=== PATIENT | female | born 1975 | race Hispanic/Latino ===

== ENCOUNTER 2016-03-09 19:36 | Emergency (ER) | payer OTHER ==
[~2016-03-09 19:36] MED LIST: IRON65TA PO; PRIL40CA PO
[2016-03-09] MEDS ORDERED: IBUPROFEN 800 MG TAB As Ordered ONE (20:52)
[2016-03-09] MEDS ORDERED: CEPHALEXIN 250 MG CAP As Ordered ONE (20:52)
--- NOTE | 2016-03-09 21:05 | EDDOCDS ---
Nurse's Notes [facility] Name: Luz Marina Valencia Age: 40 yrs Sex: Female : 1975 Arrival Date: 03/09/2016 Time: 19:36 Bed TR8 Private MD: Unknown Pcp Diagnosis: Cutaneous abscess of hand-right ring finger paronychia Presentation: 03/09 19:42 Presenting complaint: Patient states: Infected ring finger on right hand, started mcp feeling dizzy. Adult Sepsis Screening: The patient does not have new or worsening altered mentation. Patient's respiratory rate is less than 22. Systolic blood pressure is greater than 100. Patient has a qSOFA score of 0- Negative Sepsis Screen. Suicide/Homicide risk assessment- the patient denies having any suicidal and/or homicidal ideations and does not present with any other emotional, behavioral or mental health complaints. 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 Transition of care: patient was not received from another setting of care. 19:42 Acuity: LISSETT Level 4 [facility] 19:42 Method Of Arrival: Ambulance [facility] Triage Assessment: 19:45 General: Appears slender, Behavior is cooperative. Pain: Location: right hand Pain mcp currently is 9 out of 10 on a pain scale. HIV screening NA for this visit Offered previously. Neurological: Reports dizziness. Respiratory: Airway is patent Respiratory effort is even, unlabored. Derm: Skin is pink, warm & dry. Musculoskeletal: Circulation, motion, and sensation intact Swelling present in dorsal aspect of distal phalanx of right ring finger. 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 Prilosec 40 mg Oral cpDR 1 cap once daily - PMHx: GERD; - PSHx: ; - Social history: Smoking status: Patient states was never smoker of tobacco. Preferred Language: Libyan. - Family history: Not pertinent. - : The pt / caregiver states he / she is not on anticoagulants. Home medication list is obtained from the patient, family members. - Exposure Risk Screening:: None identified. Screenin:25 Screening information is obtained from the patient. Fall risk: No risks identified. cz Assistance ADL's: requires no assistance with activities of daily living. Abuse/DV Screen: The patient / caregiver reports he/she is: not in a situation that causes fear, pain or injury. Nutritional screening: No deficits noted. home support is adequate. 21:01 Advance Directives: There is no active DNR order. [facility] Assessment: 20:25 General: alert female with infection of nailbed of ring finger right hand red swollen cz to first joint of digit. 21:01 General: no changes from previous assessment, bandaid in tact to right finger. reviewed [facility] discharge instructions, encouraged and answered questions, denies further needs. Vital Signs: 19:38 BP 127 / 68; Pulse 67; Resp 18; Temp 98.0(O); Pulse Ox 99% ; Weight 79.38 kg (R); elp Height 4 ft. 11 in. (149.86 cm) (R); Pain 9/10; 21:01 BP 120 / 80; Pulse 70; Resp 16; Temp 98; Pulse Ox 99% ; Pain 8/10; cjh 19:38 Body Mass Index 35.35 (79.38 kg, 149.86 cm) elp Vitals: 19:38 Log In Time N/A - ambulance arrival. elp ED Course: 19:38 Patient visited by Manuela Fam PCA. elp 19:38 Unknown Pcp is Private Physician. elp 19:38 Patient moved to Waiting elp 19:39 Patient visited by Manuela Fam PCA. elp 19:39 Patient moved to Pre RCE elp 19:43 Triage Initiated mcp 19:45 Patient visited by Kerry Mosquera RN. mcp 20:23 Patient moved to Triage 3 cz 20:25 The patient / caregiver is instructed regarding the plan of care and ED course. cz 20:36 Samuel Davis PA-C is PHCP. ar2 20:36 Ken Ragland DO is Attending Physician. ar2 20:36 Patient visited by Samuel Davis PA-C. ar2 21:01 Patient moved to TR8 5 21:01 No IV's were initiated during this patient's visit. No procedures done that require [facility] assistance. Administered Medications: 20:49 CANCELLED (Other Intervention Used): Cephalexin Suspension 1000 mg PO once ar2 20:58 Drug: Ibuprofen 800 mg Route: PO; [facility] 20:58 Drug: Cephalexin 1000 mg [cephalexin 250 mg capsule (4 caps)] Route: PO; [facility] Order Results: There are currently no results for this order. Outcome: 20:48 Discharge ordered by Provider. ar2 21:01 Discharge Assessment: Patient awake, alert and oriented x 3. No cognitive and/or [facility] functional deficits noted. Patient verbalized understanding of disposition instructions. patient administered narcotics - no. The following High Risk Discharge criteria are identified: None. Discharged to home ambulatory. Condition: good Condition: stable Condition: improved. Discharge instructions given to patient, Instructed on discharge instructions, follow up and referral plans. medication usage, wound care, Demonstrated understanding of instructions, medications, Pt was receptive of discharge instructions/ teaching. Prescriptions given X 1. No special radiology studies were completed. Property :Personal belongings accompany Pt. 21:04 Patient left the ED. [facility] Signatures: Kerry Mosquera RN RN mcp Zecher, Calvin, Shelley Quinones RN, INFECTION PREVENTION COORDINATOR INFECTION PREVENTION COORDINATOR jb5 Samuel Davis, PARamaC PADarienl ar2 Isamar Rod RN RN [facility] Manuela Fam, INFECTION PREVENTION COORDINATOR INFECTION PREVENTION COORDINATOR elp MTDD
--- NOTE | 2016-03-09 21:05 | EDDOCDS ---
Physician Documentation [facility] Name: Luz Marina Valencia Age: 40 yrs Sex: Female : 1975 Arrival Date: 03/09/2016 Time: 19:36 Bed TR8 Private MD: Unknown Pcp Disposition: 03/09/16 20:48 Discharged to Home/Self Care. Impression: Cutaneous abscess of hand - right ring finger paronychia. - Condition is Stable. - Discharge Instructions: Paronychia. - Prescriptions for Keflex 500 mg Oral Capsule - take 1 capsule by ORAL route every 6 hours for 7 days; 28 capsule. - Medication Reconciliation, Local Pharmacy Hours form. - Follow up: Private Physician; When: 4 - 5 days; Reason: Recheck today's complaints. Follow up: Emergency Department; When: As needed; Reason: Worsening of conditions. - Problem is new. - Symptoms have improved. - Notes: soak in warm epsom salt baths 3-4 times per day Historical: - Allergies: no known allergies; - Home Meds: 1. Prilosec 40 mg Oral cpDR 1 cap once daily - PMHx: GERD; - PSHx: ; - Social history: Smoking status: Patient states was never smoker of tobacco. Preferred Language: Welsh. - Family history: Not pertinent. - : The pt / caregiver states he / she is not on anticoagulants. Home medication list is obtained from the patient, family members. - Exposure Risk Screening:: None identified. 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 11 in. (149.86 cm) (R); Pain 9/10; 21:01 BP 120 / 80; Pulse 70; Resp 16; Temp 98; Pulse Ox 99% ; Pain 8/10; cjh 19:38 Body Mass Index 35.35 (79.38 kg, 149.86 cm) elp MDM: 20:47 Dressing ordered. ar2 20:47 Ibuprofen 800 mg PO once ordered. ar2 20:49 Cephalexin 1000 mg PO once ordered. ar2 Administered Medications: 20:49 CANCELLED (Other Intervention Used): Cephalexin Suspension 1000 mg PO once ar2 20:58 Drug: Ibuprofen 800 mg Route: PO; [facility] 20:58 Drug: Cephalexin 1000 mg [cephalexin 250 mg capsule (4 caps)] Route: PO; [facility] Signatures: Kerry Mosquera RN Artemio Lagos mcp, RN RN cz Robertshaw, Aaron, PA-C PA-C ar2 Isamar Rod RN RN [facility] The chart was reviewed and I authenticate all verbal orders and agree with the evaluation and treatment provided.Corrections: (The following items were deleted from the chart) 20:49 20:47 Cephalexin Suspension 1000 mg PO once ordered. ar2 ar2 MTDD
--- NOTE | 2016-03-13 09:55 | EDDOCDS ---
Physician Documentation [facility] Name: Luz Marina Valencia Age: 40 yrs Sex: Female : 1975 Arrival Date: 03/09/2016 Time: 19:36 Bed TR8 Private MD: Unknown Pcp Disposition: 03/09/16 20:48 Discharged to Home/Self Care. Impression: Cutaneous abscess of hand - right ring finger paronychia. - Condition is Stable. - Discharge Instructions: Paronychia. - Prescriptions for Keflex 500 mg Oral Capsule - take 1 capsule by ORAL route every 6 hours for 7 days; 28 capsule. - Medication Reconciliation, Local Pharmacy Hours form. - Follow up: Private Physician; When: 4 - 5 days; Reason: Recheck today's complaints. Follow up: Emergency Department; When: As needed; Reason: Worsening of conditions. - Problem is new. - Symptoms have improved. - Notes: soak in warm epsom salt baths 3-4 times per day Historical: - Allergies: no known allergies; - Home Meds: 1. Prilosec 40 mg Oral cpDR 1 cap once daily - PMHx: GERD; - PSHx: ; - Social history: Smoking status: Patient states was never smoker of tobacco. Preferred Language: Jordanian. - Family history: Not pertinent. - : The pt / caregiver states he / she is not on anticoagulants. Home medication list is obtained from the patient, family members. - Exposure Risk Screening:: None identified. 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 11 in. (149.86 cm) (R); Pain 9/10; 21:01 BP 120 / 80; Pulse 70; Resp 16; Temp 98; Pulse Ox 99% ; Pain 8/10; cjh 19:38 Body Mass Index 35.35 (79.38 kg, 149.86 cm) elp MDM: 20:47 Dressing ordered. ar2 20:47 Ibuprofen 800 mg PO once ordered. ar2 20:49 Cephalexin 1000 mg PO once ordered. ar2 21:06 [facility] Payment Agreement was scanned into [employer] and attached to record. jp5 : Financial registration complete. jp5 03/10 08:29 T-Sheet-- Draft Copy was scanned into [employer] and attached to record. [facility] Administered Medications: 03/09 20:49 CANCELLED (Other Intervention Used): Cephalexin Suspension 1000 mg PO once ar2 20:58 Drug: Ibuprofen 800 mg Route: PO; [facility] 20:58 Drug: Cephalexin 1000 mg [cephalexin 250 mg capsule (4 caps)] Route: PO; [facility] Signatures: Kerry Mosquera RN RN [facility] Artemio Caballero RN RN Samuel Forrester PA-C PA-C ar2 Isamar Rod RN RN [facility] Lior Reinoso [facility] Mesha Elliott [facility] The chart was reviewed and I authenticate all verbal orders and agree with the evaluation and treatment provided.Corrections: (The following items were deleted from the chart) 20:49 20:47 Cephalexin Suspension 1000 mg PO once ordered. ar2 ar2 Attachments: 21:06 [facility] Payment Agreement jp5 03/10 08:29 T-Sheet-- Draft Copy [facility] Chart Complete MTDD
--- NOTE | 2016-03-13 09:55 | EDDOCDS ---
Physician Documentation [facility] Name: Luz Marina Valencia Age: 40 yrs Sex: Female : 1975 Arrival Date: 03/09/2016 Time: 19:36 Bed TR8 Private MD: Unknown Pcp Disposition: 03/09/16 20:48 Discharged to Home/Self Care. Impression: Cutaneous abscess of hand - right ring finger paronychia. - Condition is Stable. - Discharge Instructions: Paronychia. - Prescriptions for Keflex 500 mg Oral Capsule - take 1 capsule by ORAL route every 6 hours for 7 days; 28 capsule. - Medication Reconciliation, Local Pharmacy Hours form. - Follow up: Private Physician; When: 4 - 5 days; Reason: Recheck today's complaints. Follow up: Emergency Department; When: As needed; Reason: Worsening of conditions. - Problem is new. - Symptoms have improved. - Notes: soak in warm epsom salt baths 3-4 times per day Historical: - Allergies: no known allergies; - Home Meds: 1. Prilosec 40 mg Oral cpDR 1 cap once daily - PMHx: GERD; - PSHx: ; - Social history: Smoking status: Patient states was never smoker of tobacco. Preferred Language: Marshallese. - Family history: Not pertinent. - : The pt / caregiver states he / she is not on anticoagulants. Home medication list is obtained from the patient, family members. - Exposure Risk Screening:: None identified. 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 11 in. (149.86 cm) (R); Pain 9/10; 21:01 BP 120 / 80; Pulse 70; Resp 16; Temp 98; Pulse Ox 99% ; Pain 8/10; cjh 19:38 Body Mass Index 35.35 (79.38 kg, 149.86 cm) elp MDM: 20:47 Dressing ordered. ar2 20:47 Ibuprofen 800 mg PO once ordered. ar2 20:49 Cephalexin 1000 mg PO once ordered. ar2 21:06 [facility] Payment Agreement was scanned into [employer] and attached to record. jp5 : Financial registration complete. jp5 03/10 08:29 T-Sheet-- Draft Copy was scanned into [employer] and attached to record. [facility] Administered Medications: 03/09 20:49 CANCELLED (Other Intervention Used): Cephalexin Suspension 1000 mg PO once ar2 20:58 Drug: Ibuprofen 800 mg [facility]: [facility] 20:58 Drug: Cephalexin 1000 mg [cephalexin 250 mg capsule (4 caps)] Route: PO; [facility] Signatures: Kerry Mosquera RN RN [facility] Artemio Caballero RN RN Samuel Forrester PA-C PA-C ar2 Isamar Rod RN RN [facility] Lior Reinoso [facility] Mesha Elliott [facility] The chart was reviewed and I authenticate all verbal orders and agree with the evaluation and treatment provided.Corrections: (The following items were deleted from the chart) 20:49 20:47 Cephalexin Suspension 1000 mg PO once ordered. ar2 ar2 Attachments: 21:06 [facility] Payment Agreement jp5 03/10 08:29 T-Sheet-- Draft Copy [facility] Chart Complete MTDD
--- NOTE | 2016-03-13 09:55 | EDDOCDS ---
Nurse's Notes [facility] Name: Luz Marina Valencia Age: 40 yrs Sex: Female : 1975 Arrival Date: 03/09/2016 Time: 19:36 Bed TR8 Private MD: Unknown Pcp Diagnosis: Cutaneous abscess of hand-right ring finger paronychia Presentation: 03/09 19:42 Presenting complaint: Patient states: Infected ring finger on right hand, started mcp feeling dizzy. Adult Sepsis Screening: The patient does not have new or worsening altered mentation. Patient's respiratory rate is less than 22. Systolic blood pressure is greater than 100. Patient has a qSOFA score of 0- Negative Sepsis Screen. Suicide/Homicide risk assessment- the patient denies having any suicidal and/or homicidal ideations and does not present with any other emotional, behavioral or mental health complaints. 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 Transition of care: patient was not received from another setting of care. 19:42 Acuity: LISSETT Level 4 [facility] 19:42 Method Of Arrival: Ambulance [facility] Triage Assessment: 19:45 General: Appears slender, Behavior is cooperative. Pain: Location: right hand Pain mcp currently is 9 out of 10 on a pain scale. HIV screening NA for this visit Offered previously. Neurological: Reports dizziness. Respiratory: Airway is patent Respiratory effort is even, unlabored. Derm: Skin is pink, warm & dry. Musculoskeletal: Circulation, motion, and sensation intact Swelling present in dorsal aspect of distal phalanx of right ring finger. 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 Prilosec 40 mg Oral cpDR 1 cap once daily - PMHx: GERD; - PSHx: ; - Social history: Smoking status: Patient states was never smoker of tobacco. Preferred Language: Nigerien. - Family history: Not pertinent. - : The pt / caregiver states he / she is not on anticoagulants. Home medication list is obtained from the patient, family members. - Exposure Risk Screening:: None identified. Screenin:25 Screening information is obtained from the patient. Fall risk: No risks identified. cz Assistance ADL's: requires no assistance with activities of daily living. Abuse/DV Screen: The patient / caregiver reports he/she is: not in a situation that causes fear, pain or injury. Nutritional screening: No deficits noted. home support is adequate. 21:01 Advance Directives: There is no active DNR order. [facility] Assessment: 20:25 General: alert female with infection of nailbed of ring finger right hand red swollen cz to first joint of digit. 21:01 General: no changes from previous assessment, bandaid in tact to right finger. reviewed [facility] discharge instructions, encouraged and answered questions, denies further needs. Vital Signs: 19:38 BP 127 / 68; Pulse 67; Resp 18; Temp 98.0(O); Pulse Ox 99% ; Weight 79.38 kg (R); elp Height 4 ft. 11 in. (149.86 cm) (R); Pain 9/10; 21:01 BP 120 / 80; Pulse 70; Resp 16; Temp 98; Pulse Ox 99% ; Pain 8/10; h 19:38 Body Mass Index 35.35 (79.38 kg, 149.86 cm) elp Vitals: 19:38 Log In Time N/A - ambulance arrival. elp ED Course: 19:38 Patient visited by Manuela Fam PCA. elp 19:38 Unknown Pcp is Private Physician. elp 19:38 Patient moved to Waiting elp 19:39 Patient visited by Manuela Fam PCA. elp 19:39 Patient moved to Pre RCE elp 19:43 Triage Initiated mcp 19:45 Patient visited by Kerry Mosquera RN. mcp 20:23 Patient moved to Triage 3 cz 20:25 The patient / caregiver is instructed regarding the plan of care and ED course. cz 20:36 Samuel Davis PA-C is PHCP. ar2 20:36 Ken Ragland DO is Attending Physician. ar2 20:36 Patient visited by Samuel Davis PA-C. ar2 21:01 Patient moved to TR8 jb5 21:01 No IV's were initiated during this patient's visit. No procedures done that require [facility] assistance. 21:06 [facility] Payment Agreement was scanned into [email or web address] and attached to record. jp5 03/10 08:29 T-Sheet-- Draft Copy was scanned into [email or web address] and attached to record. h Administered Medications: 03/09 20:49 CANCELLED (Other Intervention Used): Cephalexin Suspension 1000 mg PO once ar2 20:58 Drug: Ibuprofen 800 mg Route: PO; [facility] 20:58 Drug: Cephalexin 1000 mg [cephalexin 250 mg capsule (4 caps)] Route: PO; [facility] Order Results: There are currently no results for this order. Outcome: 20:48 Discharge ordered by Provider. ar2 21:01 Discharge Assessment: Patient awake, alert and oriented x 3. No cognitive and/or [facility] functional deficits noted. Patient verbalized understanding of disposition instructions. patient administered narcotics - no. The following High Risk Discharge criteria are identified: None. Discharged to home ambulatory. Condition: good Condition: stable Condition: improved. Discharge instructions given to patient, Instructed on discharge instructions, follow up and referral plans. medication usage, wound care, Demonstrated understanding of instructions, medications, Pt was receptive of discharge instructions/ teaching. Prescriptions given X 1. No special radiology studies were completed. Property :Personal belongings accompany Pt. 21:04 Patient left the ED. [facility] Signatures: Kerry Mosquera RN RN mcp Zecher, Calvin, RN RN cz Baker, Janet, CONTROL ROOM HELPER CONTROL ROOM HELPER eden5 Samuel Davis, PA-Radha PA-C ar2 Isamar Rod RN RN [facility] Manuela Fam, CONTROL ROOM HELPER CONTROL ROOM HELPER Lior Long 5 Mesha Elliott Chart Complete [facility]
== END 2016-03-09 21:04 | disposition home or self-care (01) ==
LOC: M ED 19:36
DX: L02.511 Cutaneous abscess of right hand (principal); L03.011 Cellulitis of right finger; K21.9 Gastro-esophageal reflux disease without esophagitis; Z79.899 Other long term (current) drug therapy

== ENCOUNTER → 2016-06-21 | Outpatient (CLI) | payer OTHER ==
--- NOTE | 2016-06-21 12:34 | REPMRS ---
Patient History The patient states she had a clinical breast exam in 06/02/16 No known family history of cancer. Taking hormonal contraceptives for 1 year. Digital Woman Screen Mammo: June 21, 2016 - Exam #: [id number] Bilateral CC and MLO view(s) were taken. Technologist: Jackie Hernandez, Technologist Prior study comparison: May 13, 2015, left breast digital mammo diagnostic unilateral, performed at [facility]. May 10, 2015, digital woman screen mammo performed at [facility]. FINDINGS: There are scattered fibroglandular densities. There is a moderate amount of residual fibroglandular tissue which is fairly symmetric. There is no interval development of dominant mass, architectural distortion, or clustered microcalcification typical of malignancy. There has been no change in the appearance of the mammogram from the prior studies. ASSESSMENT: BI-RADS/ACR category 1 mammogram. Negative. Recommendation Routine screening mammogram of both breasts in 1 year (for women over age 40). This mammogram was interpreted with the aid of an FDA-approved computer-aided dectection system. Electronically Signed By: Carlo Dove MD 06/21/16 [id number]
== END ==
LOC: M WHC 10:49
PROVIDERS: ATTEND Nurse Practitioner Family
DX: Z12.31 Encounter for screening mammogram for malignant neoplasm of breast (principal)

== ENCOUNTER → 2017-01-10 | Outpatient (REF) | payer OTHER | LOC: M LAB REF 16:17 | PROVIDERS: ATTEND Physician Assistant | DX: J02.9 Acute pharyngitis, unspecified (principal) ==

== ENCOUNTER 2017-02-28 12:00 | Emergency (ER) | payer OTHER ==
[2017-02-28] MEDS: IBUPROFEN 600 MG TAB PO (13:11)
== END 2017-02-28 13:31 | disposition home or self-care (01) ==
LOC: M ED 12:00
DX: S80.01XA Contusion of right knee, initial encounter (principal); S80.211A Abrasion, right knee, initial encounter; W19.XXXA Unspecified fall, initial encounter; Y92.018 Other place in single-family (private) house as the place of occurrence of the external cause; Y93.89 Activity, other specified; Y99.8 Other external cause status; K21.9 Gastro-esophageal reflux disease without esophagitis; D64.9 Anemia, unspecified; Z79.899 Other long term (current) drug therapy
CPT/HCPCS: 73564

== ENCOUNTER 2018-01-15 13:23 | Emergency (ER) | payer BC, OTHER ==
[2018-01-15] MEDS: IBUPROFEN 600 MG TAB PO (14:15)
[2018-01-15 14:53] LABS: INFLUENZA A AMPLIFICATION NEGATIVE (NEGATIVE); INFLUENZA B AMPLIFICATION NEGATIVE (NEGATIVE)
== END 2018-01-15 15:38 | disposition home or self-care (01) ==
LOC: M ED 13:23
DX: J18.1 Lobar pneumonia, unspecified organism (principal); K21.9 Gastro-esophageal reflux disease without esophagitis; Z79.2 Long term (current) use of antibiotics
CPT/HCPCS: 71046

== ENCOUNTER 2018-07-02 22:11 | Emergency (ER) | payer BC ==
[~2018-07-02] VITALS: Ht 149.9 cm; Wt 81.8 kg
[~2018-07-02 22:11] MED LIST changes: +AZIT-12 PO; +CEFU50TA; +IBUP-1022 PO; +MUCI600T37 PO; +VENTAER
[2018-07-02] MEDS ORDERED: PROZ10CA7 PO (22:14)
--- NOTE | 2018-07-03 01:23 | REP ---
Clinical: Trauma. Technique: AP, lateral, bilateral oblique views left foot . Findings: The osseous structures and joint spaces are intact and normal. There is no evidence for acute fracture or dislocation. Surrounding soft tissues are unremarkable. No subcutaneous emphysema or radiodense foreign body. Impression: Normal left foot series . No acute fracture or dislocation. Electronically Signed by Alcides Rueda MD 07/03/2018 01:15 A
[2018-07-03 02:01] VITALS: BP 138/90
[2018-07-03] MEDS ORDERED: IBUP-1022 PO (02:01)
== END 2018-07-03 02:09 | disposition home or self-care (01) ==
LOC: M ED 22:11
DX: S96.912A Strain of unspecified muscle and tendon at ankle and foot level, left foot, initial encounter (principal); X50.1XXA Overexertion from prolonged static or awkward postures, initial encounter; Y92.89 Other specified places as the place of occurrence of the external cause; Y93.9 Activity, unspecified; Y99.0 Civilian activity done for income or pay; Z79.899 Other long term (current) drug therapy

== ENCOUNTER → 2018-08-20 | Outpatient (REF) | payer BC ==
[~2018-08-20] MED LIST changes: +PROZ10CA7 PO
[2018-08-20 12:31] LABS: CHOLESTEROL RISK RATIO 5.234 (<5)
== END ==
LOC: M SFHCPLAZ 09:46
PROVIDERS: ATTEND Family Medicine
DX: E78.2 Mixed hyperlipidemia (principal)

== ENCOUNTER → 2019-02-10 | Outpatient (CLI) | payer BC, SELFPAY ==
--- NOTE | 2019-02-10 15:24 | REPMRS ---
Patient History The patient states she has not had a clinical breast exam in over a year. No known family history of cancer. Taking hormonal contraceptives for 1 year. 3D TOMOSYNTHESIS WAS PERFORMED. The Trell Dillon lifetime risk for breast cancer is 10.2%. Digital Woman Screen Mammo: February 10, 2019 - Exam #: [id number] Bilateral CC and MLO view(s) were taken. Technologist: Lesvia Parish, Technologist Prior study comparison: June 21, 2016, digital woman screen mammo performed at [facility]. May 13, 2015, left breast digital mammo diagnostic unilateral, performed at [facility]. FINDINGS: The breast tissue is heterogeneously dense. This may lower the sensitivity of mammography. There has been no change in the appearance of the mammogram from the prior studies. There is a moderate amount of residual fibroglandular tissue which is fairly symmetric. There is no interval development of dominant mass, areas of architectural distortion, or clustered microcalcification typical of malignancy. Assessment: BI-RADS/ACR category 1 mammogram. Negative Mammogram. Recommendation Routine screening mammogram in 1 year (for women over age 40). This mammogram was interpreted with the aid of an FDA-approved computer-aided dectection system. Electronically Signed By: Yamil Frederick MD 02/10/19 1057
== END ==
LOC: M WHC 13:56
PROVIDERS: ATTEND Student in an Organized Health Care Education/Training Program
DX: Z12.31 Encounter for screening mammogram for malignant neoplasm of breast (principal)

== ENCOUNTER → 2019-03-06 | Outpatient (REF) | payer BC ==
[2019-03-06 11:35] LABS: CHOLESTEROL RISK RATIO 5.068 (<5)
[2019-03-06 11:49] LABS: HEMOGLOBIN A1c 5.8 %
== END ==
LOC: M SFHCPLAZ 09:18
PROVIDERS: ATTEND Family Medicine
DX: R73.03 Prediabetes (principal)

== ENCOUNTER → 2019-03-30 | Outpatient (REF) | payer BC | LOC: M SFHCPLAZ 09:25 | PROVIDERS: ATTEND Nurse Practitioner Family | DX: Z12.4 Encounter for screening for malignant neoplasm of cervix (principal) ==

== ENCOUNTER 2019-07-22 23:52 | Emergency (ER) | payer BC, SELFPAY ==
[~2019-07-22] VITALS: Ht 149.9 cm; Wt 88.1 kg
[2019-07-22 23:53] VITALS: BP 139/93
[2019-07-23] MEDS ORDERED: OMEP-221 PO
[2019-07-23 00:28] LABS: APPEARANCE, URINE MANUAL TURBID (CLEAR); COLOR, URINE MANUAL ORANGE (YELLOW); PH,URINE MAN OBSCURED UNITS (5.0 - 7.0)
[2019-07-23 00:29] LABS: BILIRUBIN, URINE MANUAL OBSCURED (NEGATIVE); BLOOD URINE MANUAL POSITIVE (NEGATIVE); GLUCOSE, URINE (UA) MANUAL OBSCURED mg/dL (NEGATIVE); KETONE, URINE MANUAL OBSCURED mg/dL (NEGATIVE); LEUKOCYTE ESTERASE, URINE MAN OBSCURED (NEGATIVE); NITRITE, URINE MANUAL OBSCURED (NEGATIVE); PROTEIN, URINE MANUAL OBSCURED mg/dL (NEGATIVE); UROBILINOGEN, URINE MANUAL OBSCURED mg/dl (NORMAL)
[2019-07-23 00:41] LABS: RBC, URINE TNTC /hpf (0-3); SQUAMOUS EPITHELIAL CELL URINE MOD AMOUNT /hpf (SMALL AMT); WBC, URINE 15-20 /hpf (0-3)
[2019-07-23 00:42] LABS: BACTERIA, URINE SMALL AMOUNT; TRANSITIONAL EPI CELLS, URINE SMALL AMOUNT /hpf
[2019-07-23 00:43] LABS: HYALINE CAST, URINE NONE SEEN /lpf (0-1)
[2019-07-23 00:46] LABS: MUCUS, URINE SMALL AMOUNT (NEGATIVE)
[2019-07-23] MEDS ORDERED: MACR100C43 PO (01:00)
[2019-07-23] MEDS ORDERED: PYRI1TAB5 PO (01:01)
[2019-07-23] MEDS: NITROFURANTOIN (MACROBID) 100 MG CAP PO ONE (01:31)
== END 2019-07-23 01:38 | disposition home or self-care (01) ==
LOC: M ED 23:52
DX: N30.91 Cystitis, unspecified with hematuria (principal); K21.9 Gastro-esophageal reflux disease without esophagitis; Z79.899 Other long term (current) drug therapy

== ENCOUNTER 2019-09-05 04:55 | Emergency (ER) | payer BC, SELFPAY ==
[~2019-09-05] VITALS: Ht 149.9 cm; Wt 86.7 kg
[~2019-09-05 04:55] MED LIST changes: +MACR100C43 PO; +OMEP-221 PO; +PYRI1TAB5 PO
[2019-09-05] MEDS ORDERED: TOBRSUS41 OU (05:40)
[2019-09-05] MEDS ORDERED: TOBRADEX OPHTH SUSP 2.5 ML OU ONE (05:45)
[2019-09-05 06:23] VITALS: BP 142/63
== END 2019-09-05 06:24 | disposition home or self-care (01) ==
LOC: M ED 04:55
DX: H10.9 Unspecified conjunctivitis (principal); K21.9 Gastro-esophageal reflux disease without esophagitis; Z79.899 Other long term (current) drug therapy

== ENCOUNTER → 2020-12-09 | Outpatient (CLI) | payer OTHER ==
[~2020-12-09] MED LIST changes: +TOBRSUS41 OU
--- NOTE | 2020-12-09 14:18 | REPMRS ---
Patient History The patient states she has not had a clinical breast exam in over a year. No known family history of cancer. Took hormonal contraceptives for 1 year. 25 unintentional weight gain. Pt denied . Digital Woman Screen Mammo: December 09, 2020 - Exam #: [id number] Bilateral CC and MLO view(s) were taken. Technologist: RT Мария Prior study comparison: February 10, 2019, bilateral digital woman screen mammo performed at [facility]. June 21, 2016, digital woman screen mammo performed at [facility]. May 10, 2015, digital woman screen mammo performed at [facility]. FINDINGS: There are scattered fibroglandular densities. The Volpara volumetric breast density category is:B. There has been no change in the appearance of the mammogram from the prior studies. There is a mild amount of scattered fibroglandular density which is fairly symmetric. There is no interval development of dominant mass, architectural distortion, or grouped microcalcification suggestive of malignancy. 3-D tomosynthesis shows no additional findings. Assessment: BI-RADS/ACR category 1 mammogram. Negative Mammogram. Recommendation Routine screening mammogram of both breasts in 1 year (for women over age 40). This patient's [facility] Lifetime Breast Cancer Risk is estimated at 9.1 %. This mammogram was interpreted with the aid of an FDA-approved computer-aided dectection system. Electronically Signed By: Carlo Dove MD 12/09/20 [id number]
== END ==
LOC: M WHC 12:59
PROVIDERS: ATTEND Nurse Practitioner Family
DX: Z12.31 Encounter for screening mammogram for malignant neoplasm of breast (principal)

== ENCOUNTER 2021-05-22 20:25 | Emergency (ER) | payer OTHER ==
[~2021-05-22] VITALS: Ht 149.9 cm; Wt 92.4 kg
[~2021-05-22 20:25] MED LIST changes: -OMEP-221 PO; +OMEP40CA5 PO
[2021-05-22] MEDS ORDERED: MOBI4TAB PO (23:04)
[2021-05-22] MEDS ORDERED: KETOROLAC 60MG 2ML VIAL IM ONE (23:10)
[2021-05-22 23:48] VITALS: BP 134/75
== END 2021-05-22 23:55 | disposition home or self-care (01) ==
LOC: M ED 20:25
DX: M25.512 Pain in left shoulder (principal); Z79.899 Other long term (current) drug therapy
CPT/HCPCS: 73030; 96372; 99283; J1885

== ENCOUNTER 2023-04-09 16:36 | Emergency (ER) | payer OTHER ==
[~2023-04-09] VITALS: Ht 149.9 cm; Wt 90.5 kg
[~2023-04-09 16:36] MED LIST changes: +MOBI4TAB PO
[2023-04-09] MEDS ORDERED: AZIT-12 PO (18:14)
[2023-04-09 19:56] VITALS: BP 125/80; TEMP 97.9; O2SAT 97
== END 2023-04-09 20:00 | disposition home or self-care (01) ==
LOC: M ED 16:36
DX: H66.91 Otitis media, unspecified, right ear (principal); K21.9 Gastro-esophageal reflux disease without esophagitis; Z79.83 Long term (current) use of bisphosphonates; Z79.2 Long term (current) use of antibiotics

== ENCOUNTER → 2023-04-16 | Outpatient (REF) | payer OTHER ==
[2023-04-16 16:55] LABS: BASO % 0.1 % (0.0-1.0); EOS # 0.2 10^3/uL (0.0-0.5); EOS % 1.7 % (0.0-3.0); HEMATOCRIT 43.1 % (36.0-47.0); HEMOGLOBIN 14.3 g/dl (12.0-15.5); LYMPH # 2.7 10^3/uL (1.5-5.0); LYMPH % 30.2 % (24.0-44.0); MEAN CORPUSCULAR HGB CONC 33.2 g/dl (32.0-36.5); MEAN CORPUSCULAR VOLUME 84.3 fl (80.0-96.0); MONO # 0.4 10^3/uL (0.0-0.8); MONO % 4.1 % (2.0-8.0); NEUTROPHILS # 5.7 10^3/uL (1.5-8.5); NEUTROPHILS % 63.6 % (36.0-66.0); PLATELET COUNT, AUTOMATED 296 10^3/uL (150-450); RED BLOOD COUNT 5.11 10^6/uL (4.00-5.40)
[2023-04-16 17:18] LABS: ALBUMIN 3.8 G/DL (3.2-5.2); ALKALINE PHOSPHATASE 100 U/L (46-116); ALT/SGPT 23 U/L (7.0-40); AST/SGOT 24 U/L (<34); BILIRUBIN,TOTAL 0.3 MG/DL (0.3-1.2); BLOOD UREA NITROGEN 10 MG/DL (9-23); CALCIUM LEVEL 9.1 MG/DL (8.5-10.1); CARBON DIOXIDE LEVEL 28 MMOL/L (20-31); CHLORIDE LEVEL 104 MMOL/L (98-107); CHOLESTEROL LEVEL 196 MG/DL (<200); CHOLESTEROL RISK RATIO 4.16 (<5); CREATININE FOR GFR 0.59 MG/DL (0.55-1.30); GLOMERULAR FILTRATION RATE > 60.0 (>58); GLUCOSE, FASTING 114 MG/DL (60-100); HDL CHOLESTEROL 47.1 MG/DL (>40); LDL CHOLESTEROL 78.1 MG/DL (<100); MAGNESIUM LEVEL 1.9 MG/DL (1.8-2.4); NON-HDL-C 148.9 MG/DL; POTASSIUM SERUM 4.7 MMOL/L (3.5-5.1); SODIUM LEVEL 137 MMOL/L (136-145); TOTAL PROTEIN 7.2 G/DL (5.7-8.2); TRIGLYCERIDES LEVEL 354 MG/DL (<150)
[2023-04-16 17:19] LABS: HEMOGLOBIN A1c 5.7 % (4.0-6.0)
[2023-04-16 17:20] LABS: THYROID STIMULATING HORMONE 1.146 uIU/ML (0.55-4.78); TOTAL 25(OH) VITAMIN D 7.7 NG/ML (20.0-100.0)
== END ==
LOC: M LAB REF 16:27
PROVIDERS: ATTEND Physician Assistant
DX: E66.9 Obesity, unspecified (principal); R53.83 Other fatigue; E55.9 Vitamin D deficiency, unspecified

== ENCOUNTER → 2023-09-06 | Outpatient (CLI) | payer OTHER | LOC: M WHC 12:57 | PROVIDERS: ATTEND Physician Assistant | DX: Z12.31 Encounter for screening mammogram for malignant neoplasm of breast (principal) ==

== ENCOUNTER → 2024-04-22 | Outpatient (REF) | payer OTHER ==
[2024-04-22 14:35] LABS: HEMOGLOBIN A1c 5.8 % (4.0-6.0)
[2024-04-22 14:49] LABS: ALBUMIN 3.2 G/DL (3.2-5.2); ALKALINE PHOSPHATASE 100 U/L (35-104); ALT/SGPT 23 U/L (7.0-40); AST/SGOT 22 U/L (<34); BILIRUBIN,TOTAL 0.3 MG/DL (0.3-1.2); BLOOD UREA NITROGEN 9 MG/DL (9-23); CALCIUM LEVEL 8.9 MG/DL (8.5-10.1); CARBON DIOXIDE LEVEL 28 MMOL/L (20-31); CHLORIDE LEVEL 103 MMOL/L (98-107); CHOLESTEROL LEVEL 202 MG/DL (<200); CHOLESTEROL RISK RATIO 3.62 (<5); CREATININE FOR GFR 0.51 MG/DL (0.55-1.30); GLOMERULAR FILTRATION RATE > 60.0 (>58); GLUCOSE, FASTING 116 MG/DL (60-100); HDL CHOLESTEROL 55.8 MG/DL (>40); LDL CHOLESTEROL 79.2 MG/DL (<100); NON-HDL-C 146.2 MG/DL; POTASSIUM SERUM 4.2 MMOL/L (3.5-5.1); SODIUM LEVEL 139 MMOL/L (136-145); TRIGLYCERIDES LEVEL 335 MG/DL (<150)
[2024-04-22 14:52] LABS: THYROID STIMULATING HORMONE 3.271 uIU/ML (0.55-4.78)
[2024-04-22 14:53] LABS: TOTAL 25(OH) VITAMIN D 11.1 NG/ML (20.0-100.0)
== END ==
LOC: M LAB REF 13:20
PROVIDERS: ATTEND Physician Assistant
DX: E66.9 Obesity, unspecified (principal); E55.9 Vitamin D deficiency, unspecified

== ENCOUNTER → 2024-12-29 | Outpatient (CLI) | payer OTHER ==
[~2024-12-29] MED LIST changes: -IBUP-1022 PO; +IBUP600T42 PO; +PROZ10CA11 PO; -PROZ10CA7 PO
== END ==
LOC: M RAD 14:28
PROVIDERS: ATTEND Physician Assistant
DX: M25.561 Pain in right knee (principal)